=== PATIENT | female | born 1935 | race Caucasian/White ===

== ENCOUNTER 2019-04-03 01:43 | Inpatient (IN) ==
[2019-04-03] MEDS ORDERED: SODIUM CHLORIDE 0.9% 1000ML 1,000 ML IV SCH ×3 (02:00→08:15)
[2019-04-03 02:02] LABS: Hematocrit (blood only) 49.4 % (37-47); Hemoglobin 16.6 g/dL (12.0-16.0); Mean Corpuscular Hgb Conc 33.6 g/dL (32-36); Mean Corpuscular Volume 89.8 fL (80-100); Mean Platelet Volume 11.4 fL (7.4-10.4); Platelet Count 339 K/uL (130-400); RDW Coefficient of Variation 15.4 % (11.5-14.5); RDW Standard Deviation 50.7 fL (36.4-46.3); White Blood Count 23.63 K/uL (4.8-10.8)
[2019-04-03 02:07] LABS: iSTAT Ionized Calcium 1.03 mmol/l (1.12-1.32); iSTAT Potassium 5.3 mEq/L (3.3-5.0)
[2019-04-03 02:33] LABS: Globulin 3.3 gm/dl (2.5-4.0)
[2019-04-03 02:34] LABS: Alanine Aminotransferase 92 U/L (12-78); Albumin Level 3.2 gm/dl (3.4-5.0); Alkaline Phosphatase 149 U/L (45-117); Aspartate Aminotransferase 149 U/L (15-37); BUN Creatinine Ratio 11.9 (10-20); Bilirubin,Total 0.4 mg/dl (0.2-1); Blood Urea Nitrogen 17 mg/dl (7-18); Calcium 7.9 mg/dl (8.5-10.1); Carbon Dioxide 15 mmol/L (21-32); Chloride 105 mmol/L (98-107); Est GFR (African American) 38.8; Est GFR (Non-African American) 33.5; Glucose 307 mg/dl (70-99); Magnesium 2.7 mg/dl (1.8-2.4); Sodium 136 mmol/L (136-145); Total Protein 6.5 gm/dl (6.4-8.2)
[2019-04-03 02:46] LABS: Basophils # (auto) 0.06 K/uL (0-0.2); Basophils % (auto) 0.3 %; Echinocytes 1+; Eosinophils % (auto) 1.3 %; Immature Granulocytes # (auto) 1.43 K/uL (0.00-0.02); Immature Granulocytes % (auto) 6.1 %; Lymphocytes # (auto) 3.74 K/uL (1.2-3.4); Lymphocytes % (auto) 15.8 %; Monocytes % (auto) 4.7 %; Neutrophils % (auto) 71.8 %; Rouleaux 1+
[2019-04-03 02:46] LABS: Appearance Urine Cloudy (Clear); Bacteria Urine Automated 2+ (Negative); Bilirubin Urine Negative (Negative); Blood Urine 3+ (Negative); Color Urine Yellow; Glucose Urine UA 3+ (Negative); Ketones Urine Negative (Negative); Leukocyte Esterase Urine Negative (Negative); Nitrite Urine Negative (Negative); Protein Urine 3+ (Negative); Specific Gravity Urine 1.017 (1.000-1.030); Urobilinogen Urine Negative (Negative); WBC Urine Automated >30 /hpf (0-5)
[2019-04-03] MEDS ORDERED: PROPOFOL IV EMULSION 10 MG/ML 100 ML VIAL IV ONE (02:47)
[2019-04-03] MEDS ORDERED: INSULIN HUMAN REGULAR PER UNIT 10 UNITS in SYRINGE 0 ML IV STA (02:56)
[2019-04-03 03:03] LABS: Cast Urine Automated 0 /lpf (0-5); RBC Urine Automated >30 /hpf (0-4)
[2019-04-03 03:04] LABS: Amorphous Sediment Urine Present (None Prsent)
[2019-04-03 03:05] LABS: Troponin I 0.019 ng/ml (0-0.045)
[2019-04-03] MEDS ORDERED: INSULIN GLARGINE SOLOSTAR 100 UNITS/ML 3 ML PEN SQ STA (03:11)
--- NOTE | 2019-04-03 03:23 | Emergency Department Note ---
Entered by Yeison James acting as a scribe for Karie Moreno MD History of Present Illness General Chief complaint: Cardiac Arrest/CPR Stated complaint: POST CARDIAC ARREST Source: patient History of Present Illness Provider complaint: Cardiac arrest Onset (ago): hour(s) less than 1 Location: chest Pain Consistency: + constant Relieved By: + none Exacerbated By: + none Associated symptoms: + denies other symptoms The patient is an 83 y/o female who present to the emergency department for laci luation following cardiac arrest prior to arrival. EMS stated that the patient was in the bedroom and walked to the living room where she collapsed. Patient's son heard the collapse and went to the patient's side. He noted that 2 minutes after the collapse she stopped breathing. EMS notes that the patient did not have CPR for roughly 15 minutes until their arrival where she was found to be asystolic. EMS notes they gave her three rounds of epinephrine before ROSC, 4 "push dose epi" subsequently, and 1 g of IV magnesium. Patient had been intubated and medic command was paged. IV dopamine drip was initiated for persistent blood pressure in the 60s systolic. EMS also notes that the patient has a history of COPD. HPI and ROS will be limited due to patients condition. Home Medications Home Medications Medication Instructions Recorded Confirmed Type Advair HFA 1 dose INHALATION DAILY 04/03/19 04/03/19 History Hyzaar 1 tab PO DAILY 04/03/19 04/03/19 History albuterol sulfate 2 puff INHALATION Q6H PRN 04/03/19 04/03/19 History levothyroxine 100 mcg PO DAILY 04/03/19 04/03/19 History lorazepam 0.5 mg PO DAILY PRN 04/03/19 04/03/19 History metformin 500 mg PO BID 04/03/19 04/03/19 History pantoprazole [Protonix] 20 mg PO DAILY 04/03/19 04/03/19 History Allergies Allergy/AdvReac Type Severity Reaction Status Date / Time latex Allergy Rash Verified 04/03/19 02:23 Past Med/Surg History Medical History COPD (chronic obstructive pulmonary disease) (Chronic) Social History Preferred Language: 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 Physical Exam Vital Signs Vital Signs - 24 hr 04/03/19 01:47 04/03/19 02:02 04/03/19 02:04 Temperature 32.2 C L Temperature Source [place] Cath ( Temp Sensing) Sepsis Recent Fever Within 48 Hours No Sepsis New/Unexplained Change in Mental Status No Sepsis Action Taken by Nursing No Action Required End-Tidal CO2 31 Pulse Rate 130 H Pulse Rate from SpO2 Sensor Respiratory Rate 20 Blood Pressure 115/92 Blood Pressure Mean 99 Pulse Oximetry 98 98 Oxygen Delivery Method Ambu-Bag T-Piece Ambu-Bag Fraction of Inspired Oxygen 04/03/19 02:41 04/03/19 03:00 04/03/19 03:01 Temperature 33.9 C L Temperature Source Sepsis Recent Fever Within 48 Hours Sepsis New/Unexplained Change in Mental Status Sepsis Action Taken by Nursing End-Tidal CO2 19 19 Pulse Rate 103 H 103 H Pulse Rate from SpO2 Sensor 103 H 103 H Respiratory Rate Blood Pressure 192/120 H Blood Pressure Mean 144 Pulse Oximetry 99 99 Oxygen Delivery Method Fraction of Inspired Oxygen 04/03/19 03:06 04/03/19 03:08 04/03/19 03:11 Temperature Temperature Source Sepsis Recent Fever Within 48 Hours Sepsis New/Unexplained Change in Mental Status Sepsis Action Taken by Nursing End-Tidal CO2 19 22 18 Pulse Rate 103 H 105 H 102 H Pulse Rate from SpO2 Sensor 102 H 103 H Respiratory Rate 16 Blood Pressure 189/112 H 198/109 H Blood Pressure Mean 137 138 Pulse Oximetry 99 98 99 Oxygen Delivery Method Fraction of Inspired Oxygen 100 04/03/19 03:15 04/03/19 03:16 04/03/19 03:21 Temperature Temperature Source Sepsis Recent Fever Within 48 Hours Sepsis New/Unexplained Change in Mental Status Sepsis Action Taken by Nursing End-Tidal CO2 18 18 18 Pulse Rate 103 H 103 H 103 H Pulse Rate from SpO2 Sensor 103 H 103 H 103 H Respiratory Rate Blood Pressure 188/113 H 184/107 H Blood Pressure Mean 138 132 Pulse Oximetry 99 99 99 Oxygen Delivery Method Fraction of Inspired Oxygen 04/03/19 03:26 04/03/19 03:30 04/03/19 03:31 Temperature Temperature Source Sepsis Recent Fever Within 48 Hours Sepsis New/Unexplained Change in Mental Status Sepsis Action Taken by Nursing End-Tidal CO2 19 17 16 Pulse Rate 102 H 103 H 103 H Pulse Rate from SpO2 Sensor 103 H 103 H 103 H Respiratory Rate Blood Pressure 186/107 H 184/130 H Blood Pressure Mean 133 148 Pulse Oximetry 99 99 99 Oxygen Delivery Method Fraction of Inspired Oxygen 04/03/19 03:32 Temperature Temperature Source Sepsis Recent Fever Within 48 Hours Sepsis New/Unexplained Change in Mental Status Sepsis Action Taken by Nursing End-Tidal CO2 18 Pulse Rate 104 H Pulse Rate from SpO2 Sensor 103 H Respiratory Rate Blood Pressure Blood Pressure Mean Pulse Oximetry 99 Oxygen Delivery Method Fraction of Inspired Oxygen Vital signs reviewed. General: Chronically ill-appearing 83-year-old female, intubated HEENT: No scleral icterus, nonreactive, neck supple. Atraumatic. Cardiovascular: Regular rate and rhythm, no extra sounds. Pulmonary: Coarse breath sounds bilaterally, equal with Ambu bag respirations. Intubated. Abdomen: Ecchymosis to the mid sternum. Soft, obese, mildly distended. Musculoskeletal: Atraumatic, no peripheral edema. Positive crepitus to the anterior chest wall. Neurologic: Unresponsive to verbal or painful stimuli. Occasional patient driven agonal respiration. Pupils fixed at 4 mm and nonreactive bilaterally. Skin: Warm, dry, no rash Course 0144: The patient was evaluated in room A01. A complete history and physical exam was performed. 0204: I spoke with Dr. Lee- [facility] [place] mortgage closing clerk, regarding the patient. The patietn will be admitted to the unit. 0251: I spoke with Dr. Quinones, [facility] hospitalist. He will evaluate for further management Administered Medications Famotidine 20 mg/ Syringe 5 mls @ 2.5 mls/min IV Q12H CONNIE Stop: 05/03/19 05:59 Last Admin: 04/03/19 06:24 Dose: 2.5 mls/min Documented by: [id number] Insulin Human Regular 250 (units/ Sodium Chloride) 250 mls @ 3.1 mls/hr IV .Q24H CONNIE; Protocol Stop: 05/03/19 05:14 Last Admin: 04/03/19 05:15 Dose: 3.1 units/hr, 3.1 mls/hr Documented by: [id number] Cosigned by: [id number] Ioversol (Optiray 320 125ml) 125 ml IV ONCE PRN PRN Reason: Interaction Checking Stop: 04/07/19 04:27 Last Admin: 04/03/19 04:29 Dose: 116 ml Documented by: [id number] Discontinued Medications Fentanyl Citrate (Fentanyl Citrate) 100 mcg IV NOW STA Stop: 04/03/19 05:45 Last Admin: 04/03/19 06:11 Dose: 100 mcg Documented by: [id number] Sodium Chloride (Nss 1000ml) 1,000 mls @ 100 mls/hr IV .Q10H [facility] Stop: 04/03/19 11:59 Last Admin: 04/03/19 02:06 Dose: 100 mls/hr Documented by: [id number] Ampicillin Sodium/Sulbactam Sodium 3,000 mg/ Sodium Chloride 108 mls @ 200 mls/hr IV NOW STA Stop: 04/03/19 05:41 Last Admin: 04/03/19 06:23 Dose: 200 mls/hr Documented by: [id number] Insulin Glargine (Lantus Solostar Pen) 10 units SQ NOW STA Stop: 04/03/19 03:12 Last Admin: 04/03/19 03:42 Dose: 10 units Documented by: [id number] Cosigned by: [id number] Insulin Human Regular (Novolin R Bolus From Bag) 3 units IV ONE ONE Stop: 04/03/19 05:16 Last Admin: 04/03/19 05:15 Dose: 3 units Documented by: [id number] Cosigned by: [id number] Methylprednisolone (Solumedrol) 20 mg IV NOW STA Stop: 04/03/19 05:10 Last Admin: 04/03/19 06:24 Dose: 20 mg Documented by: [id number] Midazolam HCl (Versed) Confirm Administered Dose 2 mg .ROUTE .STK-MED ONE Stop: 04/03/19 05:43 Last Admin: 04/03/19 06:10 Dose: 2 mg Documented by: [id number] Midazolam HCl (Versed) 2 mg IV NOW STA Stop: 04/03/19 05:45 Last Admin: 04/03/19 06:11 Dose: Not Given Documented by: [id number] Propofol (Diprivan) Confirm Administered Dose 1,000 mg IV .STK-MED ONE Stop: 04/03/19 02:48 Last Admin: 04/03/19 03:13 Dose: Not Given Documented by: [id number] Medical Decision Making Differential Diagnosis The differential diagnosis of this patient's presentation includes cardiac arrhythmia, acute myocardial infarction, electrolyte abnormality, pulmonary embolism, tension pneumothorax, medication effect, other metabolic or infectious derangement Medical Records Attestation: I reviewed the patient's medical records. Home Medications Current Medication List: was personally reviewed by me Laboratory Data Attestation: I reviewed the patient's lab results. Result diagrams: 04/03/19 01:53 04/03/19 01:53 Lab Results 04/03/19 04/03/19 04/03/19 Range/Units 01:51 01:53 01:53 WBC 23.63 H (4.8-10.8) K/uL RBC 5.50 H (4.2-5.4) M/uL Hgb 16.6 H (12.0-16.0) g/dL POC Hgb (12.0-16.0) g/dl Hct 49.4 H (37-47) % POC Hct (37-47) % MCV 89.8 (80-100) fL MCH 30.2 (25-34) pg MCHC 33.6 (32-36) g/dL RDW Std Deviation 50.7 H (36.4-46.3) fL RDW Coeff of Josie 15.4 H (11.5-14.5) % Plt Count 339 (130-400) K/uL MPV 11.4 H (7.4-10.4) fL Immature Gran % (Auto) 6.1 % Neut % (Auto) 71.8 % Lymph % (Auto) 15.8 % [place] % (Auto) 4.7 % Eos % (Auto) 1.3 % Baso % (Auto) 0.3 % Immature Gran # (Auto) 1.43 H (0.00-0.02) K/uL Neut # (Auto) 17.00 H (1.4-6.5) K/uL Lymph # (Auto) 3.74 H (1.2-3.4) K/uL [place] # (Auto) 1.10 H (0.11-0.59) K/uL Eos # (Auto) 0.30 (0-0.5) K/uL Baso # (Auto) 0.06 (0-0.2) K/uL Echinocytes 1+ Rouleaux 1+ ABG pH (7.35-7.45) ABG pCO2 (35-46) mmHg ABG pO2 (80-95) mm/Hg ABG HCO3 (19-24) mmol/L ABG O2 Saturation (90-95) % ABG Base Excess (-9-1.8) mEq/L Anmol Test (Pos) Oxygen Given POC Sodium (135-144) mEq/L Sodium 136 (136-145) mmol/L POC Potassium (3.3-5.0) mEq/L Potassium 5.0 (3.5-5.1) mmol/L POC Chloride (101-112) mEq/L Chloride 105 (98-107) mmol/L Carbon Dioxide 15 L (21-32) mmol/L POC Total CO2 (24-31) mEq/l Anion Gap 16.0 H (3-11) POC Anion Gap (16-25) mmol/L POC BUN (7-18) mg/dl BUN 17 (7-18) mg/dl Creatinine 1.44 H (0.6-1.2) mg/dl POC Creatinine (0.6-1.3) mg/dl Est Cr Clr Drug Dosing Not Reportable Est GFR ( Amer) 38.8 Est GFR (Non-Af Amer) 33.5 BUN/Creatinine Ratio 11.9 (10-20) Glucose 307 H* (70-99) mg/dl POC Glucose (other) (70-99) mg/dl Estimat Average Glucose mg/dl Hemoglobin A1c (4.5-5.6) % Lactate (0.4-2.0) mmol/L Calcium 7.9 L (8.5-10.1) mg/dl POC Ioniz Calcium Donaldo (1.12-1.32) mmol/l Magnesium 2.7 H (1.8-2.4) mg/dl Total Bilirubin 0.4 (0.2-1) mg/dl AST 149 H (15-37) U/L ALT 92 H (12-78) U/L Alkaline Phosphatase 149 H (45-117) U/L POC Troponin I (0-0.045) ng/ml Troponin I 0.019 (0-0.045) ng/ml Total Protein 6.5 (6.4-8.2) gm/dl Albumin 3.2 L (3.4-5.0) gm/dl Globulin 3.3 (2.5-4.0) gm/dl Albumin/Globulin Ratio 1.0 (0.9-2) Beta-Hydroxybutyric Acd (0.2-2.81) mg/dl Procalcitonin 0.19 (0-0.5) ng/ml TSH 22.800 H (0.300-4.500) uIu/ml Free T4 0.36 L (0.8-1.6) ng/dl Urine Color Urine Appearance (Clear) Urine pH (4.5-7.5) Ur Specific [place] (1.000-1.030) Urine Protein (Negative) Urine Glucose (UA) (Negative) Urine Ketones (Negative) Urine Blood (Negative) Urine Nitrite (Negative) Urine Bilirubin (Negative) Urine Urobilinogen (Negative) Ur Leukocyte Esterase (Negative) Urine WBC (Auto) (0-5) /hpf Urine RBC (Auto) (0-4) /hpf U Hyaline Cast (Auto) (0-5) /lpf U Epithel Cells (Auto) (0-5) /lpf Urine Bacteria (Auto) (Negative) Amorphous Sediment (None Prsent) 04/03/19 04/03/19 04/03/19 Range/Units 01:53 01:54 02:11 WBC (4.8-10.8) K/uL RBC (4.2-5.4) M/uL Hgb (12.0-16.0) g/dL POC Hgb 17.0 H (12.0-16.0) g/dl Hct (37-47) % POC Hct 50 H (37-47) % MCV (80-100) fL MCH (25-34) pg MCHC (32-36) g/dL RDW Std Deviation (36.4-46.3) fL RDW Coeff of Josie (11.5-14.5) % Plt Count (130-400) K/uL MPV (7.4-10.4) fL Immature Gran % (Auto) % Neut % (Auto) % Lymph % (Auto) % [place] % (Auto) % Eos % (Auto) % Baso % (Auto) % Immature Gran # (Auto) (0.00-0.02) K/uL Neut # (Auto) (1.4-6.5) K/uL Lymph # (Auto) (1.2-3.4) K/uL [place] # (Auto) (0.11-0.59) K/uL Eos # (Auto) (0-0.5) K/uL Baso # (Auto) (0-0.2) K/uL Echinocytes Rouleaux ABG pH (7.35-7.45) ABG pCO2 (35-46) mmHg ABG pO2 (80-95) mm/Hg ABG HCO3 (19-24) mmol/L ABG O2 Saturation (90-95) % ABG Base Excess (-9-1.8) mEq/L Anmol Test (Pos) Oxygen Given POC Sodium 136 (135-144) mEq/L Sodium (136-145) mmol/L POC Potassium 5.3 H (3.3-5.0) mEq/L Potassium (3.5-5.1) mmol/L POC Chloride 106 (101-112) mEq/L Chloride (98-107) mmol/L Carbon Dioxide (21-32) mmol/L POC Total CO2 15 L (24-31) mEq/l Anion Gap (3-11) POC Anion Gap 21.0 (16-25) mmol/L POC BUN 20 H (7-18) mg/dl BUN (7-18) mg/dl Creatinine (0.6-1.2) mg/dl POC Creatinine 1.0 (0.6-1.3) mg/dl Est Cr Clr Drug Dosing Est GFR ( Amer) Est GFR (Non-Af Amer) BUN/Creatinine Ratio (10-20) Glucose (70-99) mg/dl POC Glucose (other) 320 H (70-99) mg/dl Estimat Average Glucose mg/dl Hemoglobin A1c (4.5-5.6) % Lactate (0.4-2.0) mmol/L Calcium (8.5-10.1) mg/dl POC Ioniz Calcium Donaldo 1.03 L (1.12-1.32) mmol/l Magnesium (1.8-2.4) mg/dl Total Bilirubin (0.2-1) mg/dl AST (15-37) U/L ALT (12-78) U/L Alkaline Phosphatase (45-117) U/L POC Troponin I < 0.03 (0-0.045) ng/ml Troponin I (0-0.045) ng/ml Total Protein (6.4-8.2) gm/dl Albumin (3.4-5.0) gm/dl Globulin (2.5-4.0) gm/dl Albumin/Globulin Ratio (0.9-2) Beta-Hydroxybutyric Acd (0.2-2.81) mg/dl Procalcitonin (0-0.5) ng/ml TSH (0.300-4.500) uIu/ml Free T4 (0.8-1.6) ng/dl Urine Color Yellow Urine Appearance Cloudy A (Clear) Urine pH 5.0 (4.5-7.5) Ur Specific [place] 1.017 (1.000-1.030) Urine Protein 3+ H (Negative) Urine Glucose (UA) 3+ H (Negative) Urine Ketones Negative (Negative) Urine Blood 3+ H (Negative) Urine Nitrite Negative (Negative) Urine Bilirubin Negative (Negative) Urine Urobilinogen Negative (Negative) Ur Leukocyte Esterase Negative (Negative) Urine WBC (Auto) >30 H (0-5) /hpf Urine RBC (Auto) >30 H (0-4) /hpf U Hyaline Cast (Auto) 0 (0-5) /lpf U Epithel Cells (Auto) 10-20 H (0-5) /lpf Urine Bacteria (Auto) 2+ H (Negative) Amorphous Sediment Present A (None Prsent) 04/03/19 04/03/19 04/03/19 Range/Units 03:14 03:28 03:28 WBC (4.8-10.8) K/uL RBC (4.2-5.4) M/uL Hgb (12.0-16.0) g/dL POC Hgb (12.0-16.0) g/dl Hct (37-47) % POC Hct (37-47) % MCV (80-100) fL MCH (25-34) pg MCHC (32-36) g/dL RDW Std Deviation (36.4-46.3) fL RDW Coeff of Josie (11.5-14.5) % Plt Count (130-400) K/uL MPV (7.4-10.4) fL Immature Gran % (Auto) % Neut % (Auto) % Lymph % (Auto) % [place] % (Auto) % Eos % (Auto) % Baso % (Auto) % Immature Gran # (Auto) (0.00-0.02) K/uL Neut # (Auto) (1.4-6.5) K/uL Lymph # (Auto) (1.2-3.4) K/uL [place] # (Auto) (0.11-0.59) K/uL Eos # (Auto) (0-0.5) K/uL Baso # (Auto) (0-0.2) K/uL Echinocytes Rouleaux ABG pH 7.33 L (7.35-7.45) ABG pCO2 26 L (35-46) mmHg ABG pO2 402 H (80-95) mm/Hg ABG HCO3 13 L (19-24) mmol/L ABG O2 Saturation 99.9 H (90-95) % ABG Base Excess -10.6 L (-9-1.8) mEq/L Anmol Test Pos (Pos) Oxygen Given 100% POC Sodium (135-144) mEq/L Sodium (136-145) mmol/L POC Potassium (3.3-5.0) mEq/L Potassium (3.5-5.1) mmol/L POC Chloride (101-112) mEq/L Chloride (98-107) mmol/L Carbon Dioxide (21-32) mmol/L POC Total CO2 (24-31) mEq/l Anion Gap (3-11) POC Anion Gap (16-25) mmol/L POC BUN (7-18) mg/dl BUN (7-18) mg/dl Creatinine (0.6-1.2) mg/dl POC Creatinine (0.6-1.3) mg/dl Est Cr Clr Drug Dosing Est GFR ( Amer) Est GFR (Non-Af Amer) BUN/Creatinine Ratio (10-20) Glucose (70-99) mg/dl POC Glucose (other) (70-99) mg/dl Estimat Average Glucose 128 mg/dl Hemoglobin A1c 6.1 H (4.5-5.6) % Lactate 5.7 H* (0.4-2.0) mmol/L Calcium (8.5-10.1) mg/dl POC Ioniz Calcium Donaldo (1.12-1.32) mmol/l Magnesium (1.8-2.4) mg/dl Total Bilirubin (0.2-1) mg/dl AST (15-37) U/L ALT (12-78) U/L Alkaline Phosphatase (45-117) U/L POC Troponin I (0-0.045) ng/ml Troponin I (0-0.045) ng/ml Total Protein (6.4-8.2) gm/dl Albumin (3.4-5.0) gm/dl Globulin (2.5-4.0) gm/dl Albumin/Globulin Ratio (0.9-2) Beta-Hydroxybutyric Acd (0.2-2.81) mg/dl Procalcitonin (0-0.5) ng/ml TSH (0.300-4.500) uIu/ml Free T4 (0.8-1.6) ng/dl Urine Color Urine Appearance (Clear) Urine pH (4.5-7.5) Ur Specific [place] (1.000-1.030) Urine Protein (Negative) Urine Glucose (UA) (Negative) Urine Ketones (Negative) Urine Blood (Negative) Urine Nitrite (Negative) Urine Bilirubin (Negative) Urine Urobilinogen (Negative) Ur Leukocyte Esterase (Negative) Urine WBC (Auto) (0-5) /hpf Urine RBC (Auto) (0-4) /hpf U Hyaline Cast (Auto) (0-5) /lpf U Epithel Cells (Auto) (0-5) /lpf Urine Bacteria (Auto) (Negative) Amorphous Sediment (None Prsent) Imaging Data Attestation: I personally reviewed and interpreted this imaging study as follows: My Impression: Pulmonary edema, interstitial change status post CPR. ET tube in good position, no evidence of pneumothorax. Radiologist's Impression: Radiology results as stated below per my review and the radiologist's interpretation: CT HEAD Evaluation is limited due to motion artifact. No definite acute intracranial hemorrhage, mass effect, midline shift, hydrocephalus or infarct. 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 Low- densities in the bilateral periventricular white matter are nonspecific but probably chronic small vessel ischemic disease. Bony structures are intact. Bilateral ethmoid and left maxillary sinusitis. ECG Data Attestation: I personally reviewed and interpreted this ECG as follows: Indication: other (Cardiac arrest) Rate (beats per minute): 136 Rhythm: sinus tachycardia Findings: + other (Low voltage), + LAFB and + Q waves (Inferior, anterior) Blood Pressure Blood Pressure Findings: Elevated blood pressure Blood Pressure Disposition: elevated BP felt to be situational Additional Comments: Status post cardiac arrest on dopamine drip that was recently discontinued MDM Narrative This patient was evaluated and was intubated on the ventilator per EMS. Pt tika ined tachycardic but blood pressure was elevated. The IV dopamine drip was discontinued. Patient remained hypertensive but the heart rate did improve. Chest x-ray was performed and reveals the ET tube in good position. There are coarse lung changes bilaterally and likely pulmonary edema. Rib fractures are noted on exam with crepitus to the left greater than right anterior chest wall. Patient was placed on IV normal saline solution at 100 mL's per hour as she had received the better part of 2 L prior to arrival. EKG reveals old injury without evidence of STEMI. CT scan of the head was performed and reveals findings as above without acute hemorrhage or acute abnormality otherwise. I d id speak with Dr. Lee the mortgage closing clerk on service. He has requested the assistance of the hospitalist service, Dr. Browne was contacted. Patient remains borderline tachycardic and hypertensive. She remains unresponsive to verbal, painful stimuli. Patient's family was informed of the findings and agree with the plan for admission and further management. After admission to the ICU, I was contacted by Dr. Browne who had performed a CT scan of the chest. He stated a large left sided pneumothorax was identified. Dr. Lee would be responding from home to place a chest tube but requested a needle decompression. A 16-gauge 1-1/2 inch needle was placed into the left second intercostal space with air gush appreciated. Patient remained unresponsive to this procedure without sedation. Dr. Lee arrived at the bedside and will assume care. Impression & Plan Cardiac arrest, Acute respiratory failure Discharge Plan Visit Data *Final* Discharge Date/Time: 04/03/19 04:30 Chief Complaint: Cardiac Arrest/CPR Stated Complaint: POST CARDIAC ARREST ED Provider: Karie Moreno Discharge Problem: Cardiac arrest, Acute respiratory failure Patient Disposition: Admitted As Inpatient Discharge Instructions Interventions: ED Discharge Assessment Last Done: 04/03/19 04:30 Discharge Problem: Acute respiratory failure Qualifiers: Respiratory failure complication: hypoxia and hypercapnia Qualified Code(s): J96.01 - Acute respiratory failure with hypoxia The scribe's documentation has been prepared under my direction and personally reviewed by me in its entirety. I confirm that the note above accurately reflects all work, treatment, procedures, and medical decision making performed by me.
--- NOTE | 2019-04-03 03:37 | History & Physical Report ---
Date of Service April 03, 2019 Assessment & Plan (1) Cardiac arrest: witnessed cardiac arrest at home status post successful ROSC ? Pneumothorax as precipitating factor Aspiration pneumonia, possible sepsis chronic respiratory failure secondary to COPD on home O2 hx HEAVEN/CPAP intolerance hx CHF, patient on the dry side prior hx of heart attack/stroke as per family (about 20 years ago requiring confinement at 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 Lee to evaluate patient at the ICU after being notified of CT chest results.) Cultures, ff lactic acid Unasyn, steroid, neb Rx for poss COPD exacerbation secondary to aspiration pneumonia TTE, Cardiology consult RE cardiac arrest IVF, follow renal function Hold antihypertensives for now until trend obtained Basal insulin, ISS BG goal 1 40-180, check hemoglobin A1c; may need IV insulin drip Increase oral levothyroxine dose from 25 to 50 mcg daily once able to give enterally, recheck TSH after 1 month DVT prophylaxis Heparin subcu GI prophylaxis. Famotidine Full code as per sons. Total critical care time was 50 minutes. Patient son requesting updates from providers. Mr. Donavon Badillo, contact #[phone]. History of Present Illness Chief Complaint: Cardiac arrest as per records Primary Care Provider: Isai Diana, DO History obtained from family, and records. Unable to obtain history from patient secondary to unresponsive/intubated state. Medical history significant for chronic respiratory failure secondary to COPD on home O2, HEAVEN/CPAP intolerance, CHF as per family, prior hx of heart attack/stroke as per family (about 20 years ago requiring confinement at [facility]), hypertension, hyperlipidemia, DM 2 on oral medications, GERD, hypothyroidism. As per son, patient walked to the living room from the bathroom last night looking more short of breath than usual. Patient collapsed in front of son. Noted to be unresponsive, not breathing. U sual junky cough, chest aches symptoms since October as per son. No fluid retention complaints as per son. More frequent heartburn symptoms as per son. EMS called. Initial rhythm asystole. CPR initiated followed by 3 doses of epinephrine. ROSC obtained after 15 minutes of CPR. SBP 60s. Dopamine initiated. Patient subsequently initiated. Hypothermia protocol initiated at the ER. 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 Allergies Allergy/AdvReac Type Severity Reaction Status Date / Time latex Allergy Rash Verified 04/03/19 02:23 Home Medications Home Medications Medication Instructions Recorded Confirmed Type Advair HFA 1 dose INHALATION DAILY 04/03/19 04/03/19 History Hyzaar 1 tab PO DAILY 04/03/19 04/03/19 History albuterol sulfate 2 puff INHALATION Q6H PRN 04/03/19 04/03/19 History levothyroxine 100 mcg PO DAILY 04/03/19 04/03/19 History lorazepam 0.5 mg PO DAILY PRN 04/03/19 04/03/19 History metformin 500 mg PO BID 04/03/19 04/03/19 History pantoprazole [Protonix] 20 mg PO DAILY 04/03/19 04/03/19 History Past Med/Surg History Medical History COPD (chronic obstructive pulmonary disease) (Chronic) Social History Preferred Language: [place]al[place] Mid Level Project Manager Required: No Beliefs That Will Affect Care: None Current Living Situation: Family Current Living Situation Comment: patient lives with son Smoking Status: Never smoker Hx Alcohol Use: No Hx Substance Use: No Review of Systems Review of Systems: Could not be reliably obtained Physical Exam Physical Exam: GENERAL: Unresponsive, no respiratory distress SKIN: Normal color, cool HEENT: [place] palpebral conjunctivae, no ptosis, dry buccal mucosa, ET in place NECK : Supple, short, no tenderness CHEST : Diffuse expiratory wheezes , no tenderness HEART : Tachycardic, no obvious murmurs ABDOMEN: Some distention, nontender EXTREMITIES : No LE swelling/tenderness, no other conspicuous deformities noted NEUROLOGIC : Comatose, no facial asymmetry, no other gross focality Results & Data Vital Signs (Past 12 Hours) Vital Signs Temp Pulse Resp BP Pulse Ox 04/03/19 03:08 105 H 16 98 04/03/19 02:41 33.9 C L 04/03/19 02:04 32.2 C L 04/03/19 02:02 98 04/03/19 01:47 130 H 20 115/92 98 Laboratory Results Laboratory Results WBC 23.63 K/uL (4.8-10.8) H 04/03/19 01:53 RBC 5.50 M/uL (4.2-5.4) H 04/03/19 01:53 Hgb 16.6 g/dL (12.0-16.0) H 04/03/19 01:53 POC Hgb 17.0 g/dl (12.0-16.0) H 04/03/19 01:53 Hct 49.4 % (37-47) H 04/03/19 01:53 POC Hct 50 % (37-47) H 04/03/19 01:53 MCV 89.8 fL (80-100) 04/03/19 01:53 MCH 30.2 pg (25-34) 04/03/19 01:53 MCHC 33.6 g/dL (32-36) 04/03/19 01:53 RDW Std Deviation 50.7 fL (36.4-46.3) H 04/03/19 01:53 RDW Coeff of Josie 15.4 % (11.5-14.5) H 04/03/19 01:53 Plt Count 339 K/uL (130-400) 04/03/19 01:53 MPV 11.4 fL (7.4-10.4) H 04/03/19 01:53 Immature Gran % (Auto) 6.1 % 04/03/19 01:53 Neut % (Auto) 71.8 % 04/03/19 01:53 Lymph % (Auto) 15.8 % 04/03/19 01:53 [place] % (Auto) 4.7 % 04/03/19 01:53 Eos % (Auto) 1.3 % 04/03/19 01:53 Baso % (Auto) 0.3 % 04/03/19 01:53 Immature Gran # (Auto) 1.43 K/uL (0.00-0.02) H 04/03/19 01:53 Neut # (Auto) 17.00 K/uL (1.4-6.5) H 04/03/19 01:53 Lymph # (Auto) 3.74 K/uL (1.2-3.4) H 04/03/19 01:53 [place] # (Auto) 1.10 K/uL (0.11-0.59) H 04/03/19 01:53 Eos # (Auto) 0.30 K/uL (0-0.5) 04/03/19 01:53 Baso # (Auto) 0.06 K/uL (0-0.2) 04/03/19 01:53 Echinocytes 1+ 04/03/19 01:53 Rouleaux 1+ 04/03/19 01:53 POC Sodium 136 mEq/L (135-144) 04/03/19 01:53 Sodium 136 mmol/L (136-145) 04/03/19 01:53 POC Potassium 5.3 mEq/L (3.3-5.0) H 04/03/19 01:53 Potassium 5.0 mmol/L (3.5-5.1) 04/03/19 01:53 POC Chloride 106 mEq/L (101-112) 04/03/19 01:53 Chloride 105 mmol/L (98-107) 04/03/19 01:53 Carbon Dioxide 15 mmol/L (21-32) L 04/03/19 01:53 POC Total CO2 15 mEq/l (24-31) L 04/03/19 01:53 Anion Gap 16.0 (3-11) H 04/03/19 01:53 POC Anion Gap 21.0 mmol/L (16-25) 04/03/19 01:53 POC BUN 20 mg/dl (7-18) H 04/03/19 01:53 BUN 17 mg/dl (7-18) 04/03/19 01:53 Creatinine 1.44 mg/dl (0.6-1.2) H 04/03/19 01:53 POC Creatinine 1.0 mg/dl (0.6-1.3) 04/03/19 01:53 Est Cr Clr Drug Dosing Not Reportable 04/03/19 01:53 Est GFR ( Amer) 38.8 04/03/19 01:53 Est GFR (Non-Af Amer) 33.5 04/03/19 01:53 BUN/Creatinine Ratio 11.9 (10-20) 04/03/19 01:53 Glucose 307 mg/dl (70-99) H* 04/03/19 01:53 POC Glucose (other) 320 mg/dl (70-99) H 04/03/19 01:53 Calcium 7.9 mg/dl (8.5-10.1) L 04/03/19 01:53 POC Ioniz Calcium [place] 1.03 mmol/l (1.12-1.32) L 04/03/19 01:53 Magnesium 2.7 mg/dl (1.8-2.4) H 04/03/19 01:53 Total Bilirubin 0.4 mg/dl (0.2-1) 04/03/19 01:53 AST 149 U/L (15-37) H 04/03/19 01:53 ALT 92 U/L (12-78) H 04/03/19 01:53 Alkaline Phosphatase 149 U/L (45-117) H 04/03/19 01:53 POC Troponin I < 0.03 ng/ml (0-0.045) 04/03/19 01:54 Troponin I 0.019 ng/ml (0-0.045) 04/03/19 01:53 Total Protein 6.5 gm/dl (6.4-8.2) 04/03/19 01:53 Albumin 3.2 gm/dl (3.4-5.0) L 04/03/19 01:53 Globulin 3.3 gm/dl (2.5-4.0) 04/03/19 01:53 Albumin/Globulin Ratio 1.0 (0.9-2) 04/03/19 01:53 Beta-Hydroxybutyric Acd mg/dl (0.2-2.81) 04/03/19 01:53 Procalcitonin 0.19 ng/ml (0-0.5) 04/03/19 01:51 TSH 22.800 uIu/ml (0.300-4.500) H 04/03/19 01:53 Urine Color Yellow 04/03/19 02:11 Urine Appearance Cloudy (Clear) A 04/03/19 02:11 Urine pH 5.0 (4.5-7.5) 04/03/19 02:11 Ur Specific [place] 1.017 (1.000-1.030) 04/03/19 02:11 Urine Protein 3+ (Negative) H 04/03/19 02:11 Urine Glucose (UA) 3+ (Negative) H 04/03/19 02:11 Urine Ketones Negative (Negative) 04/03/19 02:11 Urine Blood 3+ (Negative) H 04/03/19 02:11 Urine Nitrite Negative (Negative) 04/03/19 02:11 Urine Bilirubin Negative (Negative) 04/03/19 02:11 Urine Urobilinogen Negative (Negative) 04/03/19 02:11 Ur Leukocyte Esterase Negative (Negative) 04/03/19 02:11 Urine WBC (Auto) >30 /hpf (0-5) H 04/03/19 02:11 Urine RBC (Auto) >30 /hpf (0-4) H 04/03/19 02:11 U Hyaline Cast (Auto) 0 /lpf (0-5) 04/03/19 02:11 U Epithel Cells (Auto) 10-20 /lpf (0-5) H 04/03/19 02:11 Urine Bacteria (Auto) 2+ (Negative) H 04/03/19 02:11 Amorphous Sediment Present (None Prsent) A 04/03/19 02:[address] head initial read motion artifact. No definite acute intracranial hemorrhage, mass-effect, midline shift, hydrocephalus or infarct. Calcified meningiomas mid anterior falx. Chronic small vessel ischemic change. Sinusitis. CT chest initial read: Moderate to large left pneumothorax 50 to 60% of left lung volume. Acute fracture left first through seventh ribs, right 1st-6 ribs. No mediastinal shift. No pulmonary emboli. Consolidation left lower lobe probably related to aspiration. Right mainstem bronchus endotracheal tube, recommend positioning. Enteric tube at GE junction, recommend advancement. Moderate atherosclerosis. Scattered coronary artery calcification. IVC, hepatic vein reflux consistent with right-sided heart failure. Gastritis. EKG as per my interpretation :rate 135, sinus tachycardia, LAD, LAFB, inferior infarct, T wave flattening septal leads, PVCs, low voltage
[2019-04-03 03:39] LABS: Base Excess ABG -10.6 mEq/L (-9-1.8); HCO3 ABG 13 mmol/L (19-24); Oxygen Saturation ABG 99.9 % (90-95); PCO2 ABG 26 mmHg (35-46); PO2 ABG 402 mm/Hg (80-95); pH ABG 7.33 (7.35-7.45)
[2019-04-03] MEDS ORDERED: CARBOHYDRATES FOR HYPOGLYCEMIA PO PRN (03:40)
[2019-04-03] MEDS ORDERED: DEXTROSE 50% 50 ML SYRINGE IV PRN (03:40)
[2019-04-03] MEDS ORDERED: GLUCOSE 10 TABS/TUBE PO PRN (03:40)
[2019-04-03] MEDS ORDERED: GLUCAGON FOR INJ 1 MG VIAL SQ PRN (03:40)
[2019-04-03] MEDS ORDERED: GLUCOSE 40% GEL 15 GM TUBE PO PRN (03:40)
[2019-04-03 03:41] LABS: T4 Free Thyroxine 0.36 ng/dl (0.8-1.6)
[2019-04-03 03:42] LABS: Allen Test Pos (Pos)
[2019-04-03] MEDS ORDERED: INSULIN ASPART 100 UNITS/ML 3 ML PEN SC SCH (03:45)
[2019-04-03] MEDS ORDERED: SODIUM CHLORIDE 0.9% 1000ML 1,000 ML IV ONE (04:12)
[2019-04-03] MEDS ORDERED: OPTIRAY 320 125ml IV PRN (04:28)
[2019-04-03] MEDS ORDERED: fentaNYL citrate 100 MCG/2 ML VIAL IV PRN (04:37)
[2019-04-03] MEDS ORDERED: ICU PROTOCOL FOR HYPERGLYCEMIA PRN (04:37)
[2019-04-03] MEDS ORDERED: ACETAMINOPHEN 650 MG SUPP PR PRN (04:37)
[2019-04-03] MEDS ORDERED: ARTIFICIAL TEARS OP OINT 3.5 GM TUBE OP PRN (04:37)
[2019-04-03] MEDS ORDERED: ACETAMINOPHEN 65 ML IV PRN (04:37)
[2019-04-03] MEDS ORDERED: LORazepam 1 MG/2 ML VIAL IV PRN (04:37)
[2019-04-03] MEDS ORDERED: PROMETHAZINE HCL 12.5 MG in SODIUM CHLORIDE 0.9% 50 ML IV PRN (04:37)
[2019-04-03] MEDS ORDERED: AMPICILLIN/SULBACTAM SOD 3,000 MG in 0.9 % SODIUM CHLORIDE 100 ML IV STA (05:09)
[2019-04-03] MEDS ORDERED: INSULIN REGULAR 250 UNITS in SODIUM CHLORIDE 0.9% 247.5 ML IV SCH (05:15)
[2019-04-03] MEDS ORDERED: NovoLIN-R BOLUS FROM BAG IV ONE (05:15)
[2019-04-03] MEDS ORDERED: BusPIRone 15 MG TAB NG PRN (05:19)
[2019-04-03] MEDS ORDERED: MIDAZOLAM HCL 1 MG/ML 2ML VIAL ONE (05:42)
[2019-04-03] MEDS ORDERED: MIDAZOLAM HCL 5 MG/ML 1 ML VIAL IV STA (05:44)
[2019-04-03] MEDS ORDERED: fentaNYL citrate 100 MCG/2 ML VIAL IV STA (05:44)
[2019-04-03] MEDS ORDERED: AMPICILLIN/SULBACTAM CONSULT ACTIVE PRN (06:11)
[2019-04-03 06:21] LABS: Estimated Average Glucose 128 mg/dl; Hemoglobin A1C 6.1 % (4.5-5.6)
[2019-04-03] MEDS: FAMOTIDINE 20 MG in SYRINGE 3 ML IV SCH ×2 (06:24→17:34)
--- NOTE | 2019-04-03 06:32 | XRay Report ---
XR chest 1V portable HISTORY: 83 years-old Female pneumo and OGT placement acute respiratory failure COMPARISON: Chest radiograph of same day at 2 7:00 AM and CTA chest of same day TECHNIQUE: Portable AP view of the chest FINDINGS: Cardiac silhouette is enlarged, unchanged. Status post placement of a left-sided chest tube with mode rate amount of subcutaneous emphysema about the lateral left chest wall. Decreased size of the left p neumothorax with a left-sided pleural line not definitively seen. Endotracheal tube terminates 1.9 cm superior to the ratna. Enteric tube courses below the diaphragm within the region of the gastric donya men. The patient is rotated to the left. Mild right hemidiaphragmatic elevation. Pulmonary vascular c ongestion with persistent left midlung and left lung base opacities suggestive of atelectasis. Multip le acute left-sided rib fractures are better seen on comparison CTA of the chest. Degenerative change s of the shoulders and spine. IMPRESSION: 1. Status post placement of a left-sided chest tube, distal tip terminating adjacent to the left lung apex. Previously noted left-sided pneumothorax is not definitively seen. 2. Cardiomegaly without overt pulmonary edema. 3. Endotracheal and enteric tube placement as above. 4. Persistent left lung base opacities suggestive of probable atelectasis. The above report was generated using voice recognition software. It may contain grammatical, syntax o r spelling errors. Electronically signed by: Titi aVldez M.D. 04/03/2019 6:31 AM
--- NOTE | 2019-04-03 06:33 | CT Scan Report ---
CT angio chest PE protocol CT DOSE: 938.62 mGy.cm HISTORY: Chest pain. Dyspnea. PE TECHNIQUE: Multiaxial CT images of the chest were performed following the intravenous administration of contrast to evaluate the pulmonary arteries. Maximal intensity projection images were also obtaine d. A dose lowering technique was utilized adhering to the principles of ALARA. COMPARISON STUDY: None. FINDINGS: 50% left-sided pneumothorax. Superimposed atelectasis versus contusion posterior aspect lef t lower lobe. Endotracheal tube is origin of the right mainstem bronchus. This should be pulled back.. Limited eval uation the upper abdomen is grossly unremarkable. There is nasogastric tube at gastroesophageal junct ion and should be advanced. Pulmonary vasculature enhances appropriately. No significant filling defects. Bilateral rib fractures including the left first through sixth ribs at the extreme anterior aspect of the chest. IMPRESSION: 1. No evidence of pulmonary embolus. 2. 50% left-sided pneumothorax. 3. Contusion versus consolidation left lower lobe. 4. Endotracheal tube at the origin of the right mainstem bronchus and should be pulled back. 5. Endotracheal tube at the gastroesophageal junction The above report was generated using voice recognition software. It may contain grammatical, syntax or spelling errors. Electronically signed by: Richard De Paz M.D. 04/03/2019 6:32 AM
--- NOTE | 2019-04-03 06:36 | XRay Report ---
XR chest 1V portable CLINICAL HISTORY: weakness dyspnea COMPARISON STUDY: 04/03/2019 2:00 AM FINDINGS: Slight increase in density overlying the right hemithorax felt to be technical. The left-si ded pneumothorax on CT evaluation is difficult to define. Endotracheal tube is at the origin of the r ight mainstem bronchus and should be pulled back. . IMPRESSION: 1. Endotracheal tube origin right main stem bronchus and should be pulled back. 2. Nasogastric tube is at the gastro-esophageal junction. 3. Asymmetric density in the chest regions bilaterally felt to be a combination of overlying soft tis tonia and a potential left pneumothorax based on CT evaluation. 4. Bilateral rib fractures are again noted. The above report was generated using voice recognition software. It may contain grammatical, syntax or spelling errors. Electronically signed by: Richard De Paz M.D. 04/03/2019 6:35 AM
[2019-04-03 06:39] LABS: INR 1.1 (0.9-1.1); Prothrombin Time 11.1 Seconds (9.0-12.0)
--- NOTE | 2019-04-03 07:06 | CT Scan Report ---
CT head/brain wo con CLINICAL HISTORY: 83 years-old Female presenting with cardiac arrest, fixed pupils, irregular breathi ng. TECHNIQUE: Multidetector CT imaging of the head was performed without the use of intravenous contrast . IV contrast: None. One or more dose lowering techniques were used consistent with the principles of ALARA (as low as reasonably achievable), including automatic exposure control, mA or kV adjustment t o individual patient size, and/or use of iterative reconstruction. COMPARISON: None. CT DOSE (mGy.cm): The estimated cumulative dose is 1382.10 mGy.cm. FINDINGS: Toll Line Mechanic topogram: Unremarkable. Image quality is degraded by motion artifact necessitating repeat scanning. Repeat scanning was perfo rmed twice with all 3 attempts with varying degrees of degradation. This moderately limits diagnostic sensitivity the exam especially of the posterior fossa. Ventricles and sulci normal in size. No hemorrhage. Periventricular and subcortical white matter hypo attenuation, nonspecific but likely indicative of chronic small vessel ischemic change. No acute terr itorial infarct. No mass effect or midline shift. Extra-axial calcification along the falx near the v ertex. Aerated secretions with layering fluid in the left maxillary sinus with sclerosis of the left max or sinus novoa. A tube is in place within the nasal cavity. Calvarium intact. IMPRESSION: Image quality is degraded by motion artifact necessitating repeat scanning. Repeat scanning was perfo rmed twice with all 3 attempts with varying degrees of degradation. This moderately limits diagnostic sensitivity the exam especially of the posterior fossa. 1. Chronic small vessel ischemic change. No acute intracranial abnormality. 2. Calcification along the falx near the vertex likely represents falx cerebri calcification or falx ossification. 3. Findings suggest acute sinusitis though this may alternatively related to the presence of the mckenna al cavity tube. Electronically signed by: Ulysses Henning M.D. 04/03/2019 7:05 AM
--- NOTE | 2019-04-03 07:51 | Critical Care Consultation ---
Date of Consultation April 03, 2019 Assessment & Plan (1) Admitted to intensive care unit: Reason Critically Ill: Ms. Badillo is a 83 year old female with a past medical history of chronic respiratory failure secondary to COPD (wears 2L O2 around the clock at home), CHF, prior MS and stroke, hypertension, hyperlipidemia, DM2, and hypothyroidism who presented to [facility] after a cardiac arrest. EMS estimates that she did not have CPR for roughly 10-15 minutes until their arrival. Upon their arrival, her rhythm was asystole. Chest compressions were commenced, and she received 3 rounds of epinephrine and 1g of magnesium IV. She obtained ROSC after 15 minutes of CPR and was intubated. The ICU team was consulted for further management. 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 Brain MRI ordered to further assess Cardiac: -s/p cardiac arrest with successful ROSC after 15 minutes of CPR and 3 rounds of epinephrine -> likely secondary to hypoxic respiratory failure -> patient found to have a 50% left sided pneumothorax and possible consolidation vs. contusion of left lower lobe -> s/p placement of left sided chest tube -> continue to monitor on telemetry -> ECHO revealed severe hypokinesis to akinesis of mid and apical wall segments with an EF of 15-20% -> cardiology consult placed Respiratory: -Pneumothorax -> s/p placement of left-sided chest tube, confirmed with CXR -Suspected Pneumonia/COPD exacerbation ->initially received Unasyn, currently on ceftriaxone -> Receiving 20mg daily of methylprednisone -> nebs ordered GI: -GI Prophylaxis -> 20mg bid of famotidine -Transaminitis -> LFTs elevated, suspect related to ischemic hepatitis -NPO RENAL/LYTES: -creatinine elevated at 1.37, unsure of baseline -electrolytes within normal limits -continue IVF with 100 mls/hr of normosol : -dewitt catheter in place -urine culture pending ENDO: -history of hypothyroidism, receiving home dose of Synthroid IV. TSH elevated at 22 with a free T4 of 0.36. -Diabetes Mellitus -> HbA1c 6.1% -> pt had elevated sugars on arrival, requiring an insulin drip -> currently on hold given last BSG was 169 HEME: -H&H stable ID: -Suspected left sided pneumonia -> on ceftriaxone -> bcx and urine cultures pending LINES/IV ACCESS: PIV x3 CODE STATUS: Per discussion with family this AM, family has elected not to escalate care further. Grim prognosis given duration of asystole, likely anoxic encephalopathy and unresponsiveness. Sons are waiting for another family member who is currently en route to [facility]. Will discuss further at that time. Transitioned to DNR/DNI. DVT PROPHYLAXIS: Heparin 5,000 units SQ q8h Thank you for allowing us to participate in the care of this patient. Please refer to my attending physician's documentation for any further recommendations. (2) Cardiac arrest: (3) Pneumothorax: (4) Chest tube in place: Supervising Physician Co-Signing Physician Notes Dr. Pelaez was resident physician during care of patient. I separately evaluated patient for capps portions of the history and the exam. I was present during the critical portion of medical decision making, and I discussed the case with the resident. I generally agree with the findings and plan. The history of this witnessed cardiac arrest is most consistent with being respiratory in origin. There was no report of ventricular tachycardia or ventricular fibrillation, given the particulars surrounding the extended resuscitation time I feel that therapeutic hypothermia is not strongly indicated in this case. After extensive discussion with the patient's sons, we will obtain an MRI to better evaluate for anoxic brain injury, she does not have reassuring physical exam findings. Her pneumothorax was treated emergently with a left tube thoracostomy please see procedure note for further details. At this time we are waiting for the patient's third son to arrive from [place]. Accordingly we have made the patient DO NOT RESUSCITATE in event of cardiac arrest. We have reached maximum therapy and will likely transition to complete comfort with a terminal extubation after the patient's final son arrives. I have personally spent 50 minutes of critical care time in the direct management of this patient. This is a life/limb threatening event. This includes time spent evaluating patient, direct bedside care, chart review, placing orders, interpretation of diagnostic studies, discussion with consultants, patient, and/or family members regarding treatment decisions, as well as other required patient management activities. This time is exclusive of all separately billable procedures, and teaching time and separate from and in addition to any other critical care service time. History of Present Illness Reason for Consultation: s/p cardiac arrest Requesting Physician: Dr. Quinones Attending Physician: Dr. Lee History of Present Illness Ms. Badillo is a 83 year old female with a past medical history of chronic respiratory failure secondary to COPD (wears 2L O2 around the clock at home), CHF, prior MS and stroke, hypertension, hyperlipidemia, DM2, and hypothyroidism who presented to [facility] after a cardiac arrest. She was then transferred to the ICU for further management. History is obtained from family and records as the patient is currently intubated. Her two sons and granddaughter are at her bedside. They stated that while walking from the living room to the bathroom last night, she appeared more SOB than usual. She collapsed in front of her son who subsequently called the ambulance. He noted that she was unresponsive and not breathing. Her initial rhythm was asystole. EMS estimates that she did not have CPR for roughly 15 minutes until their arrival. Upon their arrival, chest compressions were commenced, and she received 3 rounds of epinephrine and 1g of magnesium IV. She obtained ROSC after 15 minutes of CPR. Per review of the chart, EMS had then administered 4 "push dose epi" subsequently. She was intubated and started on IV dopamine for hypotension, with a systolic BP in the 60s. Upon arrival to the ED, she was tachycardic and BP was elevated. The IV dopamine drip was discontinued. She underwent a CT brain which did not reveal any acute intracranial abnormalities. She also had a CT of her chest which showed a large left sided pneumothorax. Mr. Badillo underwent needle decompression of her pneumothorax. She then had a chest tube to decompress her pneumothorax. Allergies Allergy/AdvReac Type Severity Reaction Status Date / Time latex Allergy Rash Verified 04/03/19 02:23 Home Medications Home Medications Medication Instructions Recorded Confirmed Type Advair HFA 1 dose INHALATION DAILY 04/03/19 04/03/19 History Hyzaar 1 tab PO DAILY 04/03/19 04/03/19 History albuterol sulfate 2 puff INHALATION Q6H PRN 04/03/19 04/03/19 History levothyroxine 100 mcg PO DAILY 04/03/19 04/03/19 History lorazepam 0.5 mg PO DAILY PRN 04/03/19 04/03/19 History metformin 500 mg PO BID 04/03/19 04/03/19 History pantoprazole [Protonix] 20 mg PO DAILY 04/03/19 04/03/19 History Patient History Medical History COPD (chronic obstructive pulmonary disease) (Chronic) Social History Preferred Language: Arabic [employer] Required: No Beliefs That Will Affect Care: None Current Living Situation: Family Current Living Situation Comment: patient lives with son Smoking Status: Never smoker Hx Alcohol Use: No Hx Substance Use: No Review of Systems Review of Systems: Other (Unobtainable ) Physical Exam Constitutional: well developed, well nourished and + mechanically ventilated Respiratory: Auscultation: + diminished lung sounds and + wheezes breathing over ETT Cardiovascular: RRR, no murmur, no edema Vessels: radial pulses present Extremities: no pedal edema extremities cool to touch Gastrointestinal (Abdomen): Inspection/Auscultation: + abdomen distended Percussion/Palpation: abdomen soft Neurologic: Cranial Nerves: + no PERRL unresponsive, GCS 1 Results & Data Vital Signs (Past 12 Hours) Vital Signs Temp Pulse Resp BP BP Pulse Ox 04/03/19 07:01 110 H 33 H 136/96 98 04/03/19 07:00 112 H 34 H 98 04/03/19 06:56 111 H 29 H 136/94 99 04/03/19 06:51 113 H 24 138/96 99 04/03/19 06:50 113 H 28 H 99 04/03/19 06:46 112 H 40 H 134/95 98 04/03/19 06:41 113 H 27 H 136/93 98 04/03/19 06:40 116 H 27 H 98 04/03/19 06:36 115 H 31 H 137/101 H 97 04/03/19 06:31 116 H 30 H 131/98 97 04/03/19 06:30 115 H 26 H 96 04/03/19 06:26 117 H 32 H 135/98 97 04/03/19 06:21 119 H 20 140/97 97 04/03/19 06:20 119 H 23 97 04/03/19 06:16 121 H 25 H 135/97 97 04/03/19 06:10 124 H 32 H 137/99 96 04/03/19 06:05 126 H 24 122/107 H 95 04/03/19 06:01 128 H 25 H 125/89 95 04/03/19 06:00 128 H 25 H 95 04/03/19 05:56 130 H 15 129/91 95 04/03/19 05:51 117 H 20 96 04/03/19 05:50 109 H 23 143/88 H 97 04/03/19 05:46 108 H 24 140/99 95 04/03/19 05:40 100 H 17 95 04/03/19 05:32 109 H 28 H 160/111 H 99 04/03/19 05:31 104 H 29 H 162/105 H 98 04/03/19 05:30 100 H 21 98 04/03/19 05:20 102 H 35 H 98 04/03/19 05:16 106 H 27 H 165/112 H 98 04/03/19 05:10 108 H 25 H 97 04/03/19 05:01 108 H 24 175/111 H 97 04/03/19 05:00 111 H 23 98 04/03/19 04:57 111 H 25 H 172/119 H 98 04/03/19 04:53 107 H 31 H 98 04/03/19 04:50 114 H 28 H 98 04/03/19 04:37 111 H 04/03/19 04:30 99 04/03/19 04:27 34.3 C L 26 H 165/103 H 99 04/03/19 04:06 107 H 177/119 H 99 04/03/19 04:01 106 H 185/112 H 99 04/03/19 04:00 105 H 99 04/03/19 03:56 108 H 187/120 H 99 04/03/19 03:51 106 H 188/120 H 99 04/03/19 03:50 106 H 99 04/03/19 03:46 106 H 184/119 H 99 04/03/19 03:41 106 H 187/114 H 99 04/03/19 03:40 105 H 99 04/03/19 03:36 104 H 186/117 H 99 04/03/19 03:32 104 H 99 04/03/19 03:31 103 H 184/130 H 99 04/03/19 03:30 103 H 99 04/03/19 03:26 102 H 186/107 H 99 04/03/19 03:21 103 H 184/107 H 99 04/03/19 03:16 103 H 188/113 H 99 04/03/19 03:15 103 H 99 04/03/19 03:11 102 H 198/109 H 99 04/03/19 03:08 105 H 16 98 04/03/19 03:06 103 H 189/112 H 99 04/03/19 03:01 103 H 192/120 H 99 04/03/19 03:00 103 H 99 04/03/19 02:41 33.9 C L 04/03/19 02:04 32.2 C L 04/03/19 02:02 98 04/03/19 01:47 130 H 20 115/92 98 PG Care Time/CCT Critical Care Time: Yes Total Critical Care Time: 50 Resident Activity Tracking Resident Involvement: Resident Care Provided Care Provided: Adult Hospital Medicine
[2019-04-03] MEDS: IPRATROPIUM BROMIDE HFA INHALER INH SCH ×2 (08:02→14:07)
[2019-04-03] MEDS: LEVALBUTEROL TARTRATE 15 GM HFA.AER.AD INH SCH ×2 (08:03→14:07)
[2019-04-03 08:38] LABS: BUN Creatinine Ratio 15.6 (10-20); Calcium 8.2 mg/dl (8.5-10.1); Creatinine Clr Calc Pharmacy 28.4 ml/min; Est GFR (African American) 41.2; Est GFR (Non-African American) 35.6; Potassium 4.7 mmol/L (3.5-5.1)
[2019-04-03] MEDS: HEPARIN SOD 5,000 UNIT/0.5 ML VIAL SQ SCH ×3 (08:49→20:40)
[2019-04-03] MEDS: INSULIN ASPART 100 UNITS/ML 3 ML PEN SC SCH ×4 (08:49→20:41)
--- NOTE | 2019-04-03 08:52 | Hospitalist Progress Note ---
Date of Service April 03, 2019 Assessment & Plan (1) Cardiac arrest: Cardiac arrest - S/P Intubation Witnessed cardiac arrest at home post successful ROSC in around 15 minutes XR/ CT scan chest - No PE, 50% LEFT SIDED PNEUMOTHORAX, Contusion vs consolidation of left lower lobe - possible pneumonia -S/P Left sided chest tube placement today -S/P IV Unasyn -IV Solu medrol 20 mg due to audible wheezing on presentation -Work up- Leucocytosis, Lactic acidosis- up to 7.4, Trop x 1 neg -[employer] on board -Cardiology consulted- Echo- EF 15-20%, Gd I diastolic dysfunction UNRESPONSIVENESS / HYPOTHERMIA S/P Intubation / Sedation/ Post cardiac arrest- probable anoxic encephalopathy CHRONIC HYPOXIC RESPIRATORY FAILURE/COPD -On chronic oxygen 2 L at home -IV Steroids due to wheezing on presentation CHRONIC CHF Prior hx of heart attack/stroke as per family (about 20 years ago requiring confinement at [facility]) HTN S/P hypotension initially --> Post dopamine drip --> HTN DM 2 on oral medications: -Hold PO meds -ISS, HBA1C - 6.1 HYPOTHYROIDISM TSH markedly elevated with low T4- 22 level -IV Levothyroxine 50 mcg (Home dose: 100 mcg) -Need adjustments once medically more stable DVT prophylaxis - Heparin subcu GI prophylaxis. Famotidine Full code as per sons. Disposition Prognosis - poor Discussion done with sons by bedside- considering comfort measures only given poor prognosis, anoxic brain injury. Waiting for their brother to come in tonight from [place] to make final decision about goals of care. Patient son requesting updates from providers. Mr. Donavon Badillo, contact #[phone]. Subjective Patient is intubated and unresponsive. Hypothermic + Physical Exam 2 Physical Exam: GENERAL- Unresponsive + Intubated + LUNGS- Air entry bilaterally decreased. No rales, rhonchi HEART- Regular rate and rhythm. No murmurs EXTREMITIES- Good peripheral pulses, no edema NEUROMUSCULAR- Unresponsive + Results & Data Vital Signs (Past 12 Hours) Vital Signs Temp Pulse Resp BP BP Pulse Ox 04/03/19 08:12 105 H 23 99 04/03/19 07:01 110 H 33 H 136/96 98 04/03/19 07:00 112 H 34 H 98 04/03/19 06:56 111 H 29 H 136/94 99 04/03/19 06:51 113 H 24 138/96 99 04/03/19 06:50 113 H 28 H 99 04/03/19 06:46 112 H 40 H 134/95 98 04/03/19 06:41 113 H 27 H 136/93 98 04/03/19 06:40 116 H 27 H 98 04/03/19 06:36 115 H 31 H 137/101 H 97 04/03/19 06:31 116 H 30 H 131/98 97 04/03/19 06:30 115 H 26 H 96 04/03/19 06:26 117 H 32 H 135/98 97 04/03/19 06:21 119 H 20 140/97 97 04/03/19 06:20 119 H 23 97 04/03/19 06:16 121 H 25 H 135/97 97 04/03/19 06:10 124 H 32 H 137/99 96 04/03/19 06:05 126 H 24 122/107 H 95 04/03/19 06:01 128 H 25 H 125/89 95 04/03/19 06:00 128 H 25 H 95 04/03/19 05:56 130 H 15 129/91 95 04/03/19 05:51 117 H 20 96 04/03/19 05:50 109 H 23 143/88 H 97 04/03/19 05:46 108 H 24 140/99 95 04/03/19 05:40 100 H 17 95 04/03/19 05:32 109 H 28 H 160/111 H 99 04/03/19 05:31 104 H 29 H 162/105 H 98 04/03/19 05:30 100 H 21 98 04/03/19 05:20 102 H 35 H 98 04/03/19 05:16 106 H 27 H 165/112 H 98 04/03/19 05:10 108 H 25 H 97 04/03/19 05:01 108 H 24 175/111 H 97 04/03/19 05:00 111 H 23 98 04/03/19 04:57 111 H 25 H 172/119 H 98 04/03/19 04:53 107 H 31 H 98 04/03/19 04:50 114 H 28 H 98 04/03/19 04:37 111 H 04/03/19 04:30 99 04/03/19 04:27 34.3 C L 26 H 165/103 H 99 04/03/19 04:06 107 H 177/119 H 99 04/03/19 04:01 106 H 185/112 H 99 04/03/19 04:00 105 H 99 04/03/19 03:56 108 H 187/120 H 99 04/03/19 03:51 106 H 188/120 H 99 04/03/19 03:50 106 H 99 04/03/19 03:46 106 H 184/119 H 99 04/03/19 03:41 106 H 187/114 H 99 04/03/19 03:40 105 H 99 04/03/19 03:36 104 H 186/117 H 99 04/03/19 03:32 104 H 99 04/03/19 03:31 103 H 184/130 H 99 04/03/19 03:30 103 H 99 04/03/19 03:26 102 H 186/107 H 99 04/03/19 03:21 103 H 184/107 H 99 04/03/19 03:16 103 H 188/113 H 99 04/03/19 03:15 103 H 99 04/03/19 03:11 102 H 198/109 H 99 04/03/19 03:08 105 H 16 98 04/03/19 03:06 103 H 189/112 H 99 04/03/19 03:01 103 H 192/120 H 99 04/03/19 03:00 103 H 99 04/03/19 02:41 33.9 C L 04/03/19 02:04 32.2 C L 04/03/19 02:02 98 04/03/19 01:47 130 H 20 115/92 98
[2019-04-03] MEDS ORDERED: LEVOTHYROXINE SODIUM 50 MCG in SYRINGE 0 ML IV SCH (09:00)
[2019-04-03] MEDS ORDERED: LEVOTHYROXINE SODIUM 25 MCG in SYRINGE 0 ML IV SCH (09:00)
[2019-04-03] MEDS: NORMOSOL-R 1,000 ML IV SCH ×2 (10:04→20:53)
--- NOTE | 2019-04-03 11:09 | Cardiology Consultation ---
Date of Consultation April 03, 2019 Assessment & Plan (1) Cardiac arrest: Patient suffered [id number] arrest with greater than 10 minutes labs prior to initiation of resuscitative therapies. Etiology possible pulmonary versus cardiac. Patient did recover rhythm after CPR and epinephrine. Echocardiogram demonstrates severe LV dysfunction a pattern suggestive of apical ballooning cardiomyopathy underlying ischemic process not excluded. Recommendations pending on course of plan would initiate beta-arie therapy for rate control and treatment of underlying cardiomyopathy over above findings and neurologic assessment suggest poor prognosis and initial thoughts by family are leaning towards comfort measures. Will follow along (2) Acute respiratory failure: (3) Cardiomyopathy: (4) Pneumothorax: History of Present Illness Reason for Consultation: Out of hospital cardiopulmonary arrest Requesting Physician: Rosa Pritchard Attending Physician: Alma Delia Brown History of Present Illness Patient is an 83-year-old female with history of underlying significant lung disease O2 and CPAP dependent possible underlying ischemic heart disease who suffered a witnessed [id number] arrest date of admission. Per review of records and discussion patient been more dyspneic that day and while ambulating collapsed to the floor. Paramedics were summoned and CPR initiated approximately 10 minutes after initial event with extended course of resuscitation ultimately returning rhythm with initial rhythm asystole after CPR and epinephrine. Patient is now intubated in the intensive care unit did receive chest tube for pneumothorax likely secondary to CPR multiple rib fractures noted. Patient currently unresponsive pupils fixed. No sedation. Records and inpatient admission data reviewed Allergies Allergy/AdvReac Type Severity Reaction Status Date / Time latex Allergy Rash Verified 04/03/19 02:23 Home Medications Home Medications Medication Instructions Recorded Confirmed Type Advair HFA 1 dose INHALATION DAILY 04/03/19 04/03/19 History Hyzaar 1 tab PO DAILY 04/03/19 04/03/19 History albuterol sulfate 2 puff INHALATION Q6H PRN 04/03/19 04/03/19 History levothyroxine 100 mcg PO DAILY 04/03/19 04/03/19 History lorazepam 0.5 mg PO DAILY PRN 04/03/19 04/03/19 History metformin 500 mg PO BID 04/03/19 04/03/19 History pantoprazole [Protonix] 20 mg PO DAILY 04/03/19 04/03/19 History Patient History Medical History COPD (chronic obstructive pulmonary disease) (Chronic) Social History Preferred Language: [place] [employer] Required: No Beliefs That Will Affect Care: None Current Living Situation: Family Current Living Situation Comment: patient lives with son Smoking Status: Never smoker Hx Alcohol Use: No Hx Substance Use: No Review of Systems Review of Systems: Unobtainable due to endotracheal tube Physical Exam Constitutional: + ill appearing Patient intubated and unresponsive to noxious stimuli Eyes: Fixed asymmetric pupils ENMT: external ear and nose normal, oropharynx normal Respiratory: Auscultation: + diminished lung sounds Coarse upper airway sounds present Cardiovascular: Extremities: + edema (Trace) Cardiovascular sounds are distant but regular no audible murmur Gastrointestinal (Abdomen): normal bowel sounds, soft, nontender, no hepatosplenomegaly Musculoskeletal: Distal extremities cool with diminished pulses Results & Data Vital Signs (Past 12 Hours) Vital Signs Temp Pulse Resp BP BP Pulse Ox 04/03/19 10:00 108 H 23 114/100 99 04/03/19 09:00 107 H 30 H 114/85 99 04/03/19 08:30 107 H 26 H 122/105 H 98 04/03/19 08:12 105 H 23 99 04/03/19 08:00 103 H 26 H 136/96 98 04/03/19 07:30 107 H 33 H 138/96 99 04/03/19 07:01 110 H 33 H 136/96 98 04/03/19 07:00 112 H 34 H 98 04/03/19 06:56 111 H 29 H 136/94 99 04/03/19 06:51 113 H 24 138/96 99 04/03/19 06:50 113 H 28 H 99 04/03/19 06:46 112 H 40 H 134/95 98 04/03/19 06:41 113 H 27 H 136/93 98 04/03/19 06:40 116 H 27 H 98 04/03/19 06:36 115 H 31 H 137/101 H 97 04/03/19 06:31 116 H 30 H 131/98 97 04/03/19 06:30 115 H 26 H 96 04/03/19 06:26 117 H 32 H 135/98 97 04/03/19 06:21 119 H 20 140/97 97 04/03/19 06:20 119 H 23 97 04/03/19 06:16 121 H 25 H 135/97 97 04/03/19 06:10 124 H 32 H 137/99 96 04/03/19 06:05 126 H 24 122/107 H 95 04/03/19 06:01 128 H 25 H 125/89 95 04/03/19 06:00 128 H 25 H 95 04/03/19 05:56 130 H 15 129/91 95 04/03/19 05:51 117 H 20 96 04/03/19 05:50 109 H 23 143/88 H 97 04/03/19 05:46 108 H 24 140/99 95 04/03/19 05:40 100 H 17 95 04/03/19 05:32 109 H 28 H 160/111 H 99 04/03/19 05:31 104 H 29 H 162/105 H 98 04/03/19 05:30 100 H 21 98 04/03/19 05:20 102 H 35 H 98 04/03/19 05:16 106 H 27 H 165/112 H 98 04/03/19 05:10 108 H 25 H 97 04/03/19 05:01 108 H 24 175/111 H 97 04/03/19 05:00 111 H 23 98 04/03/19 04:57 111 H 25 H 172/119 H 98 04/03/19 04:53 107 H 31 H 98 04/03/19 04:50 114 H 28 H 98 04/03/19 04:37 111 H 04/03/19 04:30 99 04/03/19 04:27 34.3 C L 26 H 165/103 H 99 04/03/19 04:06 107 H 177/119 H 99 04/03/19 04:01 106 H 185/112 H 99 04/03/19 04:00 105 H 99 04/03/19 03:56 108 H 187/120 H 99 04/03/19 03:51 106 H 188/120 H 99 04/03/19 03:50 106 H 99 04/03/19 03:46 106 H 184/119 H 99 04/03/19 03:41 106 H 187/114 H 99 04/03/19 03:40 105 H 99 04/03/19 03:36 104 H 186/117 H 99 04/03/19 03:32 104 H 99 04/03/19 03:31 103 H 184/130 H 99 04/03/19 03:30 103 H 99 04/03/19 03:26 102 H 186/107 H 99 04/03/19 03:21 103 H 184/107 H 99 04/03/19 03:16 103 H 188/113 H 99 04/03/19 03:15 103 H 99 04/03/19 03:11 102 H 198/109 H 99 04/03/19 03:08 105 H 16 98 04/03/19 03:06 103 H 189/112 H 99 04/03/19 03:01 103 H 192/120 H 99 04/03/19 03:00 103 H 99 04/03/19 02:41 33.9 C L 04/03/19 02:04 32.2 C L 04/03/19 02:02 98 04/03/19 01:47 130 H 20 115/92 98 Laboratory Results Laboratory Results - last 24 hr 04/03/19 04/03/19 04/03/19 01:51 01:51 01:53 WBC 23.63 H RBC 5.50 H Hgb 16.6 H POC Hgb Hct 49.4 H POC Hct MCV 89.8 MCH 30.2 MCHC 33.6 RDW Std Deviation 50.7 H RDW Coeff of Josie 15.4 H Plt Count 339 MPV 11.4 H Immature Gran % (Auto) 6.1 Neut % (Auto) 71.8 Lymph % (Auto) 15.8 Rooks % (Auto) 4.7 Eos % (Auto) 1.3 Baso % (Auto) 0.3 Immature Gran # (Auto) 1.43 H Neut # (Auto) 17.00 H Lymph # (Auto) 3.74 H Rooks # (Auto) 1.10 H Eos # (Auto) 0.30 Baso # (Auto) 0.06 Echinocytes 1+ Rouleaux 1+ PT 11.1 INR 1.1 ABG pH ABG pCO2 ABG pO2 ABG HCO3 ABG O2 Saturation ABG Base Excess Anmol Test Oxygen Given POC Sodium Sodium POC Potassium Potassium POC Chloride Chloride Carbon Dioxide POC Total CO2 Anion Gap POC Anion Gap POC BUN BUN Creatinine POC Creatinine Est Cr Clr Drug Dosing Est GFR ( Amer) Est GFR (Non-Af Amer) BUN/Creatinine Ratio Glucose POC Glucose POC Glucose (other) Estimat Average Glucose Hemoglobin A1c Lactate Calcium POC Ioniz Calcium Donaldo Magnesium Total Bilirubin AST ALT Alkaline Phosphatase POC Troponin I Troponin I Total Protein Albumin Globulin Albumin/Globulin Ratio Beta-Hydroxybutyric Acd Procalcitonin 0.19 TSH Free T4 Urine Color Urine Appearance Urine pH Ur Specific [place] Urine Protein Urine Glucose (UA) Urine Ketones Urine Blood Urine Nitrite Urine Bilirubin Urine Urobilinogen Ur Leukocyte Esterase Urine WBC (Auto) Urine RBC (Auto) U Hyaline Cast (Auto) U Epithel Cells (Auto) Urine Bacteria (Auto) Amorphous Sediment Nasal Screen MRSA (PCR) 04/03/19 04/03/19 04/03/19 01:53 01:53 01:54 WBC RBC Hgb POC Hgb 17.0 H Hct POC Hct 50 H MCV MCH MCHC RDW Std Deviation RDW Coeff of Josie Plt Count MPV Immature Gran % (Auto) Neut % (Auto) Lymph % (Auto) Rooks % (Auto) Eos % (Auto) Baso % (Auto) Immature Gran # (Auto) Neut # (Auto) Lymph # (Auto) Rooks # (Auto) Eos # (Auto) Baso # (Auto) Echinocytes Rouleaux PT INR ABG pH ABG pCO2 ABG pO2 ABG HCO3 ABG O2 Saturation ABG Base Excess Anmol Test Oxygen Given POC Sodium 136 Sodium 136 POC Potassium 5.3 H Potassium 5.0 POC Chloride 106 Chloride 105 Carbon Dioxide 15 L POC Total CO2 15 L Anion Gap 16.0 H POC Anion Gap 21.0 POC BUN 20 H BUN 17 Creatinine 1.44 H POC Creatinine 1.0 Est Cr Clr Drug Dosing Not Reportable Est GFR ( Amer) 38.8 Est GFR (Non-Af Amer) 33.5 BUN/Creatinine Ratio 11.9 Glucose 307 H* POC Glucose POC Glucose (other) 320 H Estimat Average Glucose Hemoglobin A1c Lactate Calcium 7.9 L POC Ioniz Calcium Donaldo 1.03 L Magnesium 2.7 H Total Bilirubin 0.4 AST 149 H ALT 92 H Alkaline Phosphatase 149 H POC Troponin I < 0.03 Troponin I 0.019 Total Protein 6.5 Albumin 3.2 L Globulin 3.3 Albumin/Globulin Ratio 1.0 Beta-Hydroxybutyric Acd Procalcitonin TSH 22.800 H Free T4 0.36 L Urine Color Urine Appearance Urine pH Ur Specific [place] Urine Protein Urine Glucose (UA) Urine Ketones Urine Blood Urine Nitrite Urine Bilirubin Urine Urobilinogen Ur Leukocyte Esterase Urine WBC (Auto) Urine RBC (Auto) U Hyaline Cast (Auto) U Epithel Cells (Auto) Urine Bacteria (Auto) Amorphous Sediment Nasal Screen MRSA (PCR) 04/03/19 04/03/19 04/03/19 02:11 03:14 03:28 WBC RBC Hgb POC Hgb Hct POC Hct MCV MCH MCHC RDW Std Deviation RDW Coeff of Josie Plt Count MPV Immature Gran % (Auto) Neut % (Auto) Lymph % (Auto) Rooks % (Auto) Eos % (Auto) Baso % (Auto) Immature Gran # (Auto) Neut # (Auto) Lymph # (Auto) Rooks # (Auto) Eos # (Auto) Baso # (Auto) Echinocytes Rouleaux PT INR ABG pH ABG pCO2 ABG pO2 ABG HCO3 ABG O2 Saturation ABG Base Excess Anmol Test Oxygen Given POC Sodium Sodium POC Potassium Potassium POC Chloride Chloride Carbon Dioxide POC Total CO2 Anion Gap POC Anion Gap POC BUN BUN Creatinine POC Creatinine Est Cr Clr Drug Dosing Est GFR ( Amer) Est GFR (Non-Af Amer) BUN/Creatinine Ratio Glucose POC Glucose POC Glucose (other) Estimat Average Glucose 128 Hemoglobin A1c 6.1 H Lactate 5.7 H* Calcium POC Ioniz Calcium Donaldo Magnesium Total Bilirubin AST ALT Alkaline Phosphatase POC Troponin I Troponin I Total Protein Albumin Globulin Albumin/Globulin Ratio Beta-Hydroxybutyric Acd Procalcitonin TSH Free T4 Urine Color Yellow Urine Appearance Cloudy A Urine pH 5.0 Ur Specific [place] 1.017 Urine Protein 3+ H Urine Glucose (UA) 3+ H Urine Ketones Negative Urine Blood 3+ H Urine Nitrite Negative Urine Bilirubin Negative Urine Urobilinogen Negative Ur Leukocyte Esterase Negative Urine WBC (Auto) >30 H Urine RBC (Auto) >30 H U Hyaline Cast (Auto) 0 U Epithel Cells (Auto) 10-20 H Urine Bacteria (Auto) 2+ H Amorphous Sediment Present A Nasal Screen MRSA (PCR) 04/03/19 04/03/19 04/03/19 03:28 03:45 05:01 WBC RBC Hgb POC Hgb Hct POC Hct MCV MCH MCHC RDW Std Deviation RDW Coeff of Josie Plt Count MPV Immature Gran % (Auto) Neut % (Auto) Lymph % (Auto) Rooks % (Auto) Eos % (Auto) Baso % (Auto) Immature Gran # (Auto) Neut # (Auto) Lymph # (Auto) Rooks # (Auto) Eos # (Auto) Baso # (Auto) Echinocytes Rouleaux PT INR ABG pH 7.33 L ABG pCO2 26 L ABG pO2 402 H ABG HCO3 13 L ABG O2 Saturation 99.9 H ABG Base Excess -10.6 L Anmol Test Pos Oxygen Given 100% POC Sodium Sodium POC Potassium Potassium POC Chloride Chloride Carbon Dioxide POC Total CO2 Anion Gap POC Anion Gap POC BUN BUN Creatinine POC Creatinine Est Cr Clr Drug Dosing Est GFR ( Amer) Est GFR (Non-Af Amer) BUN/Creatinine Ratio Glucose POC Glucose 283 H 333 H* POC Glucose (other) Estimat Average Glucose Hemoglobin A1c Lactate Calcium POC Ioniz Calcium Donaldo Magnesium Total Bilirubin AST ALT Alkaline Phosphatase POC Troponin I Troponin I Total Protein Albumin Globulin Albumin/Globulin Ratio Beta-Hydroxybutyric Acd Procalcitonin TSH Free T4 Urine Color Urine Appearance Urine pH Ur Specific [place] Urine Protein Urine Glucose (UA) Urine Ketones Urine Blood Urine Nitrite Urine Bilirubin Urine Urobilinogen Ur Leukocyte Esterase Urine WBC (Auto) Urine RBC (Auto) U Hyaline Cast (Auto) U Epithel Cells (Auto) Urine Bacteria (Auto) Amorphous Sediment Nasal Screen MRSA (PCR) 04/03/19 04/03/19 04/03/19 05:09 06:11 08:14 WBC RBC Hgb POC Hgb Hct POC Hct MCV MCH MCHC RDW Std Deviation RDW Coeff of Josie Plt Count MPV Immature Gran % (Auto) Neut % (Auto) Lymph % (Auto) Rooks % (Auto) Eos % (Auto) Baso % (Auto) Immature Gran # (Auto) Neut # (Auto) Lymph # (Auto) Rooks # (Auto) Eos # (Auto) Baso # (Auto) Echinocytes Rouleaux PT INR ABG pH ABG pCO2 ABG pO2 ABG HCO3 ABG O2 Saturation ABG Base Excess Anmol Test Oxygen Given POC Sodium Sodium POC Potassium Potassium POC Chloride Chloride Carbon Dioxide POC Total CO2 Anion Gap POC Anion Gap POC BUN BUN Creatinine POC Creatinine Est Cr Clr Drug Dosing Est GFR ( Amer) Est GFR (Non-Af Amer) BUN/Creatinine Ratio Glucose POC Glucose 414 H* POC Glucose (other) Estimat Average Glucose Hemoglobin A1c Lactate 7.4 H* Calcium POC Ioniz Calcium Donaldo Magnesium Total Bilirubin AST ALT Alkaline Phosphatase POC Troponin I Troponin I Total Protein Albumin Globulin Albumin/Globulin Ratio Beta-Hydroxybutyric Acd Procalcitonin TSH Free T4 Urine Color Urine Appearance Urine pH Ur Specific [place] Urine Protein Urine Glucose (UA) Urine Ketones Urine Blood Urine Nitrite Urine Bilirubin Urine Urobilinogen Ur Leukocyte Esterase Urine WBC (Auto) Urine RBC (Auto) U Hyaline Cast (Auto) U Epithel Cells (Auto) Urine Bacteria (Auto) Amorphous Sediment Nasal Screen MRSA (PCR) Negative 04/03/19 08:14 WBC RBC Hgb POC Hgb Hct POC Hct MCV MCH MCHC RDW Std Deviation RDW Coeff of Josie Plt Count MPV Immature Gran % (Auto) Neut % (Auto) Lymph % (Auto) Rooks % (Auto) Eos % (Auto) Baso % (Auto) Immature Gran # (Auto) Neut # (Auto) Lymph # (Auto) Rooks # (Auto) Eos # (Auto) Baso # (Auto) Echinocytes Rouleaux PT INR ABG pH ABG pCO2 ABG pO2 ABG HCO3 ABG O2 Saturation ABG Base Excess Anmol Test Oxygen Given POC Sodium Sodium 136 POC Potassium Potassium 4.7 POC Chloride Chloride 108 H Carbon Dioxide 13 L POC Total CO2 Anion Gap 15.0 H POC Anion Gap POC BUN BUN 21 H Creatinine 1.37 H POC Creatinine Est Cr Clr Drug Dosing 28.4 Est GFR ( Amer) 41.2 Est GFR (Non-Af Amer) 35.6 BUN/Creatinine Ratio 15.6 Glucose 261 H POC Glucose POC Glucose (other) Estimat Average Glucose Hemoglobin A1c Lactate Calcium 8.2 L POC Ioniz Calcium Donaldo Magnesium Total Bilirubin AST ALT Alkaline Phosphatase POC Troponin I Troponin I Total Protein Albumin Globulin Albumin/Globulin Ratio Beta-Hydroxybutyric Acd Procalcitonin TSH Free T4 Urine Color Urine Appearance Urine pH Ur Specific [place] Urine Protein Urine Glucose (UA) Urine Ketones Urine Blood Urine Nitrite Urine Bilirubin Urine Urobilinogen Ur Leukocyte Esterase Urine WBC (Auto) Urine RBC (Auto) U Hyaline Cast (Auto) U Epithel Cells (Auto) Urine Bacteria (Auto) Amorphous Sediment Nasal Screen MRSA (PCR) Diagnostic Findings Echocardiogram: Moderate left hypertrophy with hyperdynamic basilar structures and severely hypokinetic to akinetic mid and apical segments. EF 15 to 20% findings may reflect ischemic cardiomyopathy versus apical ballooning cardiomyo paul (1) Acute respiratory failure Respiratory failure complication: hypoxia and hypercapnia Qualified Code(s): J96.01 - Acute respiratory failure with hypoxia; J96.02 - Acute respiratory failure with hypercapnia
--- NOTE | 2019-04-03 11:54 | Magnetic Resonance Report ---
MR brain wo con HISTORY: Mental status change s/p cardiac arrest TECHNIQUE: Multiplanar multisequence MRI of the brain was performed without the use of contrast. COMPARISON STUDY: None. FINDINGS: Diffusion-weighted images as well as all additional sequences are compromised due to consid erable patient motion. The limited diffusion-weighted images suggests a diffuse ischemic change of the cerebral hemispheres including the occipital lobes, periventricular regions, as well as multifocal areas of the superior a spects of the cerebral hemispheres. This appearance suggests potential generalized anoxia of the brain. There is no midline shift. There are findings of left maxillary sinusitis. There are components of ag e-related chronic small vessel change as well as atrophy IMPRESSION: 1. Limited study due to patient motion. 2. Diffusion images suggest multifocal regions of ischemia throughout both cerebral hemispheres 3. Although PRES could present in a somewhat similar fashion, the overall appearance suggests general ized brain anoxia. The above report was generated using voice recognition software. It may contain grammatical, syntax or spelling errors. Electronically signed by: Richard De Paz M.D. 04/03/2019 11:53 AM
[2019-04-03] MEDS ORDERED: cefTRIAXone SODIUM 2,000 MG in DEXTROSE 5% 50 ML IV SCH (13:00)
--- NOTE | 2019-04-03 16:26 | Procedure Note ---
Procedure Note Date of Service April 03, 2019 Procedure Date: noted above Procedure: Tube thoracostomy Pre-procedure Diagnosis: Pneumothorax Post-procedure Diagnosis: same as above Prior to Procedure: Informed Consent: Emergent consent implied Attending Staff: Rene Lee DO Resident/Physician Sock Mender: Not applicable Indications: The patient is a 83-year-old female patient with moderate large pneumothorax following CPR resuscitation on positive pressure ventilation requiring tube thoracostomy The identity of the patient was confirmed and a bedside time out was performed. Description of Procedure: Patient positioned, the left mid axillary line was prepped with chlorhexidine and draped in usual sterile fashion. 5 mL of 1% Lidocaine without epinephrine was used to anesthetize the area. A 1 cm incision was made in the mid axillary line. The subcutaneous tissues were bluntly dissected and care was taken to enter the chest cavity superior to the rib with my index finger. Large michaels of air was noted. A 20 Ivorian chest tube was inserted with care into the apices and secured at approximately 20 cm to the chest wall with 2-0 silk suture. This was connected to a Pleur-evac which did demonstrate a grade 1 air leak.. Total Fluid Removed: 5 ml Color of Fluid: Bloody Complications: None Estimated blood loss: 5 mL Post procedure chest x-ray has been ordered and reviewed Coding CPT Codes Pulmonary/Thoracic - Pulmonary and Thoracic: Tube thoracostomy ([id number])
[2019-04-03] MEDS ORDERED: LEVALBUTEROL TARTRATE 15 GM HFA.AER.AD INH SCH (20:00)
[2019-04-03] MEDS ORDERED: IPRATROPIUM BROMIDE HFA INHALER INH SCH (20:00)
--- NOTE | 2019-04-04 07:54 | Discharge Summary ---
Date of Service April 04, 2019 Admission HPI Per Admitting Provider History obtained from family, and records. Unable to obtain history from patient secondary to unresponsive/intubated state. Medical history significant for chronic respiratory failure secondary to COPD on home O2, HEAVEN/CPAP intolerance, CHF as per family, prior hx of heart attack/stroke as per family (about 20 years ago requiring confinement at [facility]), hypertension, hyperlipidemia, DM 2 on oral medications, GERD, hypothyroidism. As per son, patient walked to the living room from the bathroom last night looking more short of breath than usual. Patient collapsed in front of son. Noted to be unresponsive, not breathing. Usual junky cough, chest aches symptoms since October as per son. No fluid retention complaints as per son. More frequent heartburn symptoms as per son. EMS called. Initial rhythm asystole. CPR initiated followed by 3 doses of epinephrine. ROSC obtained after 15 minutes of CPR. SBP 60s. Dopamine initiated. Patient subsequently initiated. Hypothermia protocol initiated at the ER. 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 Cardiorespiratory arrest 2. Acute on chronic hypoxic respiratory failure requiring mechanical ventilation 3. 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 Chronic CHF 2. Hypertension 3. DM-II 4. Hypothyroidism, uncontrolled 5. COPD 6. DM-II 7. Hx of stroke 8. Hx of CAD Discharge Data Allergies Allergy/AdvReac Type Severity Reaction Status Date / Time latex Allergy Rash Verified 04/03/19 02:23 Consultations 04/03/19 02:51 ED Decision to Admit Stat 04/03/19 04:09 Consult Cardiology Routine 04/03/19 04:37 Consult Case Management - Discharge Planning Routine Consult Gaming Worker Routine Ordered Studies 04/03/19 01:53 CT head/brain wo con Urgent 04/03/19 03:34 CT angio chest PE protocol Urgent 04/03/19 08:56 MR brain wo con Routine Hospital Course (1) Cardiac arrest: Patient is a 83-year-old female with history of chronic respiratory failure on home oxygen secondary to COPD, obstructive sleep apnea/CPAP intolerance, CHF, prior history of heart attack/stroke as per family, hypertension, hyperlipidemia, diabetes mellitus type 2, GERD, hypothyroidism came to ED after a cardiac arrest at home requiring CPR for 15 minutes/epinephrine with return of spontaneous circulation. Patient was intubated. Blood pressure was low so dopamine was initiated. Admitted to intensive care unit for further evaluation and management. Chest x-ray/CT scan showed 50% left-sided pneumothorax, contusion versus consolidation of left lower lobepossible pneumonia. Left- sided chest tube was placed by compliance intern on 04/05/2019. IV antibioticsUnasyn was started for possible aspiration, IV Solu-Medrol was started due to wheezing on presentation. EKG did not show any acute ischemic changes, troponin [id number]. Echo was done which showed severe LV dysfunction pattern suggestive of apical ballooning cardiomyopathy underlying ischemic process not excluded. MRI showed generalized anoxic encephalopathy. Family meeting was done with 2 sons in the morning who opted for the option of comfort measures only, but wanted to wait for her 3rd son to arrive from [place]. Decision was made to do comfort measures only. Patient and pronounced at 20:43 PM by RN. Total Time Total Time Spent Total Time Spent (In Minutes): 20 minutes Discharge Plan Discharge Items Patient Disposition: Admission Data Admit Date/Time: 04/03/19 03:36 Service: Intensive Care Unit Other DC Date/Time DO NOT enter until pt leaves facility: 04/04/19 00:11
[2019-04-04] MEDS ORDERED: INSULIN GLARGINE SOLOSTAR 100 UNITS/ML 3 ML PEN SQ SCH (09:00)
[2019-04-04] MEDS ORDERED: methylPREDNISolone 20 MG in SYRINGE 0 ML IV SCH (09:00)
== END 2019-04-04 00:11 | disposition expired | DRG 208 ==
LOC: ED 01:43 → 1E 03:36